=== PATIENT | female | born 1995 | race Caucasian/White ===

== ENCOUNTER 2023-02-11 11:30 | Emergency (ER) | payer OTHER ==
[~2023-02-11] VITALS: Ht 162.6 cm; Wt 72.6 kg
[2023-02-11 11:56] VITALS: BP 137/91
--- NOTE | 2023-02-11 12:29 | NUR ---
PT TAKEN TO US BY W/C
--- NOTE | 2023-02-11 12:56 | NUR ---
PT BACK FROM US, TAKEN TO LOBBY
[2023-02-11 17:18] VITALS: BP 130/79
--- NOTE | 2023-02-11 17:18 | NUR ---
Patient discharged with v/s stable. Written and verbal after care instructions given. Patient alert, oriented and verbalized understanding of instructions. Ambulatory with steady gait. All questions addressed prior to discharge. ID band removed. Patient advised to follow up with PMD. Opportunity to ask questions provided and answered. COPY OF ULTRASOUND GIVEN. WORK NOTE HANDED TO PATIENT.
[2023-02-11 18:23] LABS: APPEARANCE,URINE CLEAR (CLEAR); BILIRUBIN,URINE NEGATIVE (NEGATIVE); BLOOD, URINE NEGATIVE (NEGATIVE); COLOR,URINE YELLOW (YELLOW); LEUKOCYTE ESTERASE ,URINE TRACE (NEGATIVE); NITRITE, URINE NEGATIVE (NEGATIVE); UGLUCOSE NEGATIVE (NEGATIVE)
== END 2023-02-11 17:18 | disposition home or self-care (01) ==
LOC: MED 11:30
DX: O42.90 Premature rupture of membranes, unspecified as to length of time between rupture and onset of labor, unspecified weeks of gestation (principal); O00.01 Abdominal pregnancy with intrauterine pregnancy; Z3A.16 16 weeks gestation of pregnancy
CPT/HCPCS: 36415; 76805; 81001; 84702; 86900; 86901; 87086; 99284; Q0092